=== PATIENT | male | born 1965 | race Caucasian/White ===

== ENCOUNTER 2019-01-18 14:16 | Day surgery (SDC) | payer OTHER ==
[~2019-01-18] VITALS: Ht 167.6 cm; Wt 77.9 kg
--- NOTE | 2019-01-18 14:53 | NUR ---
01/18/19 Serafin3 Mayda Lizama CALL LIGHT WITHIN REACH. FAMILY AT BEDSIDE.
--- NOTE | 2019-01-18 18:18 | NUR ---
01/18/191817 Antionette EchavarriaFelisa UPON ARRIVAL TO PACU, PT BEGAN TO DESAT INTO 80S. DR. MACIAS PLACED AN ORALPHARENGEAL AIRWAY AT 180. PT AWAKE AND REMOVED OPA AT 1809. PT REMOVED O2, AWAKE & TALKING. PT INSTRUCTED TO TAKE DEEP BREATHS. PT UNABLE TO MAINTAIN O2 ABOVE 92. 10L/M VIA FACETENT REAPPLIED. PT MAINTAINING 97% OXYGEN AT THIS TIME. PT SLEEPY BUT AROUSABLE. EYES CLOSED. PT DENIED ANY PAIN OR NAUSEA.
== END 2019-01-18 19:20 | disposition home or self-care (01) ==
LOC: ORSCSDS 14:16
PROVIDERS: Orthopaedic Surgery
PROC: 0LM40ZZ Reattachment of Left Upper Arm Tendon, Open Approach (ICD-10-PCS; principal; 2019-01-18 15:45)
DX: S46.202A Unspecified injury of muscle, fascia and tendon of other parts of biceps, left arm, initial encounter (principal)
CPT/HCPCS: A9270-GY; C1713; J0690; J1100; J1885; J2250; J2405; J2704; J2795; J3010; J7120